=== PATIENT | female | born 1975 | race Two or more races ===

== ENCOUNTER → 2024-01-23 | Outpatient (CLI) | payer BC, SELFPAY ==
[2024-01-23 09:46] LABS: Glucose Estimated Average 148 mg/dL (80-131); Hemoglobin A1C 6.8 % Hgb (4.8-6.0)
[2024-01-23 09:55] LABS: Alanine Aminotransferase 31 U/L (10-49); Albumin, Serum 4.5 gm/dL (3.5-5.0); Albumin/Globulin Ratio 2.3 (1.2-2.2); Alkaline Phosphatase 44 U/L (46-116); Anion Gap 7 (7-16); Aspartate Amino Transferase 27 U/L (0-34); BUN/Creatinine Ratio 25 Ratio (12-20); Bilirubin,Total 0.7 mg/dL (0.3-1.2); Blood Urea Nitrogen 15 mg/dL (9-23); Calcium 9.2 mg/dL (8.3-10.6); Calcium (Corrected) 9.2 mg/dL (8.5-10.1); Carbon Dioxide 27.6 mMol/L (20.0-31.0); Cardiac Risk Estimate 3.2 RATIO (3.7-5.6); Chloride 105 mMol/L (98-107); Cholesterol 146 mg/dL (132-200); Creatinine (Component) 0.6 mg/dL (0.6-1.3); Free T4 (Free Thyroxine) 1.45 ng/dL (0.89-1.76); Glucose 84 mg/dL (74-106); HDL Cholesterol 46 mg/dL (40-60); LDL Cholesterol,Calculated 67 mg/dL (0-130); Osmolality,Calculated 279 (275-295); Sodium 140 mMol/L (136-145); Thyroid Stimulating Hormone 0.01 uIU/mL (0.55-4.78); Total Protein 6.5 gm/dL (5.7-8.2); Triglycerides 167 mg/dL (30-150); eGFR > 60 See Note
[2024-01-23 10:22] LABS: Creatinine MALB Rnd Ur 121 mg/dL (30-125); Microalbumin, Random Urine < 3 mg/L (0-300)
== END | disposition home or self-care (01) ==
LOC: COPL 08:23
PROVIDERS: PCP Specialist; Referring Provider Specialist; Visit Provider Specialist
DX: E11.65 Type 2 diabetes mellitus with hyperglycemia (principal); E03.8 Other specified hypothyroidism; E78.2 Mixed hyperlipidemia
CPT/HCPCS: 36415; 80053; 80061; 82043; 82570; 83036; 84439; 84443

== ENCOUNTER → 2024-05-29 | Outpatient (CLI) | payer BC, SELFPAY ==
[2024-05-29 08:38] LABS: Misc Send Out* See Sep Rpt
[2024-05-29 09:30] LABS: Basophils # (Auto) 0.1 Thou/mm3 (0.0-0.2); Basophils % (Auto) 1 % (0-2.5); Eosinophils # (Auto) 0.2 Thou/mm3 (0.0-0.5); Eosinophils % (Auto) 2 % (0-10); Hemoglobin 13.5 g/dL (12.0-16.0); Immature Granulocytes % (Auto) 0 % (0-0); Immature Granulocytes Auto 0.02 Thou/mm3 (0.00-0.00); Lymphocytes # (Auto) 3.7 Thou/mm3 (1.0-4.8); Lymphocytes % (Auto) 47 % (10-50); Mean Corpuscular HGB Conc 32.9 g/dl (31.0-37.0); Mean Corpuscular Hemoglobin 27.3 pg (25.0-35.0); Mean Corpuscular Volume 83 fL (80-100); Monocytes # (Auto) 0.5 Thou/mm3 (0.0-0.8); Monocytes % (Auto) 6 % (0-12); Neutrophils # (Auto) 3.5 Thou/mm3 (1.8-7.7); Neutrophils % (Auto) 44 % (37-80); Nucleated Red Blood Cell % 0 /100 WBC (0); Platelet Count 224 Thou/mm3 (140-440); RDW Standard Deviation 40.4 fL (36.4-46.3); Red Blood Count 4.95 Miln/mm3 (4.00-5.20); White Blood Count 7.9 Thou/mm3 (3.6-11.0)
[2024-05-29 09:58] LABS: Follicle Stimulating Hormone 1.15 mIU/mL (See Note)
[2024-05-29 10:06] LABS: Alanine Aminotransferase 29 U/L (10-49); Albumin, Serum 4.2 gm/dL (3.5-5.0); Albumin/Globulin Ratio 1.8 (1.2-2.2); Alkaline Phosphatase 45 U/L (46-116); Anion Gap 10 (7-16); Aspartate Amino Transferase 22 U/L (0-34); BUN/Creatinine Ratio 20 Ratio (12-20); Bilirubin,Total 0.6 mg/dL (0.3-1.2); Blood Urea Nitrogen 12 mg/dL (9-23); Calcium 9.3 mg/dL (8.3-10.6); Calcium (Corrected) 9.3 mg/dL (8.5-10.1); Carbon Dioxide 24.5 mMol/L (20.0-31.0); Chloride 109 mMol/L (98-107); Creatinine (Component) 0.6 mg/dL (0.6-1.3); Free T4 (Free Thyroxine) 1.26 ng/dL (0.89-1.76); Globulin 2.3 gm/dL (2.3-3.5); Glucose 121 mg/dL (74-106); Osmolality,Calculated 285 (275-295); Potassium 3.9 mMol/L (3.4-5.1); Sodium 143 mMol/L (136-145); Thyroid Stimulating Hormone < 0.01 uIU/mL (0.55-4.78); Total Protein 6.5 gm/dL (5.7-8.2); eGFR > 60 See Note
== END | disposition home or self-care (01) ==
LOC: COPL 08:00
PROVIDERS: PCP Specialist; Referring Provider Internal Medicine Endocrinology, Diabetes & Metabolism; Visit Provider Internal Medicine Endocrinology, Diabetes & Metabolism
DX: D35.2 Benign neoplasm of pituitary gland (principal)
CPT/HCPCS: 36415; 80053; 82024; 82533; 82670; 83001; 83002; 84439; 84443; 85025

== ENCOUNTER → 2024-07-09 | Outpatient (CLI) | payer BC, SELFPAY ==
[2024-07-09 08:42] LABS: Glucose Estimated Average 143 mg/dL (80-131); Hemoglobin A1C 6.6 % Hgb (4.8-6.0)
[2024-07-09 09:02] LABS: Alanine Aminotransferase 29 U/L (10-49); Albumin, Serum 4.5 gm/dL (3.5-5.0); Alkaline Phosphatase 43 U/L (46-116); Anion Gap 9 (7-16); Aspartate Amino Transferase 27 U/L (0-34); BUN/Creatinine Ratio 16 Ratio (12-20); Bilirubin,Total 0.7 mg/dL (0.3-1.2); Blood Urea Nitrogen 11 mg/dL (9-23); Calcium 8.8 mg/dL (8.3-10.6); Calcium (Corrected) 8.8 mg/dL (8.5-10.1); Carbon Dioxide 25.9 mMol/L (20.0-31.0); Cardiac Risk Estimate 2.9 RATIO (3.7-5.6); Chloride 109 mMol/L (98-107); Cholesterol 112 mg/dL (132-200); Creatinine (Component) 0.7 mg/dL (0.6-1.3); Free T4 (Free Thyroxine) 1.61 ng/dL (0.89-1.76); Globulin 2.3 gm/dL (2.3-3.5); Glucose 86 mg/dL (74-106); HDL Cholesterol 38 mg/dL (40-60); LDL Cholesterol,Calculated 46 mg/dL (0-130); Osmolality,Calculated 285 (275-295); Potassium 3.8 mMol/L (3.4-5.1); Sodium 144 mMol/L (136-145); Thyroid Stimulating Hormone < 0.01 uIU/mL (0.55-4.78); Total Protein 6.8 gm/dL (5.7-8.2); Triglycerides 140 mg/dL (30-150); eGFR > 60 See Note
[2024-07-09 09:56] LABS: Creatinine MALB Rnd Ur 159 mg/dL (30-125); Microalbumin Creat Ratio 3 mg/gCrea (<30); Microalbumin, Random Urine 4 mg/L (0-300)
== END | disposition home or self-care (01) ==
PROVIDERS: PCP Specialist; Referring Provider Specialist; Visit Provider Specialist
DX: E11.65 Type 2 diabetes mellitus with hyperglycemia (principal); E03.8 Other specified hypothyroidism; E78.2 Mixed hyperlipidemia
CPT/HCPCS: 36415; 80053; 80061; 82043; 82570; 83036; 84439; 84443

== ENCOUNTER → 2024-08-11 | Outpatient (CLI) | payer BC, SELFPAY ==
--- NOTE | 2024-08-11 08:45 | XR_ITS ---
Examination: Screening digital mammography, bilateral Computer aided detection 3-D breast Tomosynthesis, bilateral Date and time of exam: August 11, 2024 0831 hours Compared to mammograms dating to December 27, 2017 Indication: Screening Technique: Nonmagnified MLO, CC views of the breasts to been obtained, reconstructed from 3-D Tomosynthesis images. R2 computer aided detection program utilized for evaluation of suspicious masses and/or abnormal calcifications. 3-D Tomosynthesis images obtained. Findings: Scattered areas of fibroglandular density. Benign calcifications. No interval suspicious masses Impression: BI-RADS category II: Benign Findings. Recommend 1 year follow-up mammogram.
== END | disposition home or self-care (01) ==
PROVIDERS: PCP Specialist; Referring Provider Specialist; Visit Provider Specialist
DX: Z12.31 Encounter for screening mammogram for malignant neoplasm of breast (principal); R92.1 Mammographic calcification found on diagnostic imaging of breast; R92.323 Mammographic fibroglandular density, bilateral breasts
CPT/HCPCS: 77063; 77067

== ENCOUNTER → 2024-12-11 | Outpatient (CLI) | payer BC, SELFPAY ==
--- NOTE | 2024-12-11 14:30 | XR_ITS ---
Examination: Abdomen sonogram, Limited Date and time of exam: December 11, 2024, 1416 hours INDICATIONS: Fatty liver diagnosis, abnormal liver function test and laboratory examination 3 weeks ago Technique: Real-time lopez scale transabdominal sonographic images of the upper abdomen obtained. Findings: Normal gallbladder Normal common bile duct 0.3 cm Pancreatic head 2.1 cm Liver 11.7 cm smooth contour Normal hepatopetal portal venous flow Patent IVC IMPRESSION: Normal gallbladder Liver normal size fatty infiltration no focal liver lesions
== END | disposition home or self-care (01) ==
LOC: CDIM 13:56
PROVIDERS: PCP Specialist; Referring Provider Specialist; Visit Provider Specialist
DX: K76.0 Fatty (change of) liver, not elsewhere classified (principal)
CPT/HCPCS: 76705

== ENCOUNTER → 2025-01-12 | Outpatient (CLI) | payer BC, SELFPAY ==
[2025-01-12 09:41] LABS: Glucose Estimated Average 120 mg/dL (80-131); Hemoglobin A1C 5.8 % Hgb (4.8-6.0)
[2025-01-12 09:46] LABS: Creatinine MALB Rnd Ur 172 mg/dL (30-125); Microalbumin Creat Ratio 4 mg/gCrea (<30); Microalbumin, Random Urine 7 mg/L (0-300)
[2025-01-12 09:47] LABS: Follicle Stimulating Hormone 1.70 mIU/mL (See Note)
[2025-01-12 09:48] LABS: Alanine Aminotransferase 22 U/L (10-49); Albumin, Serum 4.7 gm/dL (3.5-5.0); Albumin/Globulin Ratio 2.1 (1.2-2.2); Alkaline Phosphatase 43 U/L (46-116); Anion Gap 11 (7-16); Aspartate Amino Transferase 22 U/L (0-34); BUN/Creatinine Ratio 18 Ratio (12-20); Bilirubin,Total 0.5 mg/dL (0.3-1.2); Blood Urea Nitrogen 11 mg/dL (9-23); Calcium 9.5 mg/dL (8.3-10.6); Calcium (Corrected) 9.5 mg/dL (8.5-10.1); Carbon Dioxide 25.1 mMol/L (20.0-31.0); Cardiac Risk Estimate 2.9 RATIO (3.7-5.6); Chloride 108 mMol/L (98-107); Cholesterol 137 mg/dL (132-200); Creatinine (Component) 0.6 mg/dL (0.6-1.3); Free T4 (Free Thyroxine) 1.53 ng/dL (0.89-1.76); Globulin 2.2 gm/dL (2.3-3.5); Glucose 86 mg/dL (74-106); HDL Cholesterol 48 mg/dL (40-60); LDL Cholesterol,Calculated 57 mg/dL (0-130); Osmolality,Calculated 285 (275-295); Potassium 4.1 mMol/L (3.4-5.1); Sodium 144 mMol/L (136-145); Thyroid Stimulating Hormone < 0.01 uIU/mL (0.55-4.78); Total Protein 6.9 gm/dL (5.7-8.2); Triglycerides 158 mg/dL (30-150); eGFR > 60 See Note
[2025-01-19 07:03] LABS: ACTH, Plasma* 21 pg/mL (6-50)
[2025-01-19 07:08] LABS: Cortisol,total,LC/MS/MS* <1.0 mcg/dL; Luteinizing Hormone* <0.2 mIU/mL; T3,Total* 87 ng/dL (76-181)
== END | disposition home or self-care (01) ==
LOC: COPL 08:10
PROVIDERS: PCP Specialist; Referring Provider Specialist; Visit Provider Specialist
DX: E11.65 Type 2 diabetes mellitus with hyperglycemia (principal); E78.2 Mixed hyperlipidemia; E03.9 Hypothyroidism, unspecified
CPT/HCPCS: 36415; 80053; 80061; 82024; 82043; 82533; 82570; 83001; 83002; 83036; 84439; 84443; 84480